=== PATIENT | female | born 1955 | race Caucasian/White ===

== ENCOUNTER → 2024-04-17 15:00 | Outpatient (BNVA) | payer MEDICARE, SELFPAY | PROVIDERS: Family Provider Nurse Practitioner; PCP Family Medicine; Visit Provider Family Medicine | DX: E55.9 Vitamin D deficiency, unspecified (principal); M25.50 Pain in unspecified joint; M25.561 Pain in right knee; M25.562 Pain in left knee; R55 Syncope and collapse; Z76.89 Persons encountering health services in other specified circumstances; R79.89 Other specified abnormal findings of blood chemistry; E78.2 Mixed hyperlipidemia | CPT/HCPCS: 80053; 80061; 82306; 82607; 84443; 85025; 86140; 86200; 86431 ==